=== PATIENT | female | born 1970 | race Caucasian/White ===

== ENCOUNTER → 2016-11-14 | Outpatient (CLI) | payer OTHER ==
[2016-11-14 13:12] LABS: MEAN CORPUSCULAR HEMOGLOBIN 35.2 pg (27.0-33.0); MEAN CORPUSCULAR HGB CONC 33.4 g/dl (32.0-36.5); MEAN CORPUSCULAR VOLUME 105.3 fl (80.0-96.0); RED CELL DISTRIBUTION WIDTH 12.4 % (11.5-14.5); WHITE BLOOD COUNT 5.1 K/mm3 (4.0-10.0)
[2016-11-14 13:43] LABS: ERYTHROCYTE SEDIMENTATION RATE 3 mm/hr (0-20)
[2016-11-14 13:58] LABS: ALBUMIN 3.8 GM/DL (3.2-5.2); ALBUMIN/GLOBULIN RATIO 1.52 (1.00-1.93); ALKALINE PHOSPHATASE 56 U/L (45-117); ALT/SGPT 29 U/L (12-78); AMYLASE 32 U/L (25-115); ANION GAP 6 MEQ/L (8-16); AST/SGOT 19 U/L (15-37); BILIRUBIN,TOTAL 0.4 MG/DL (0.2-1.0); BLOOD UREA NITROGEN 9 MG/DL (7-18); CALCIUM LEVEL 8.9 MG/DL (8.5-10.1); CARBON DIOXIDE LEVEL 27 MEQ/L (21-32); CHLORIDE LEVEL 109 MEQ/L (98-107); CREATININE FOR GFR 0.75 MG/DL (0.55-1.02); GLOMERULAR FILTRATION RATE > 60.0 (>58); GLUCOSE, FASTING 93 MG/DL (70-105); POTASSIUM SERUM 5.1 MEQ/L (3.5-5.1); SODIUM LEVEL 142 MEQ/L (136-145); TOTAL PROTEIN 6.3 GM/DL (6.4-8.2)
--- NOTE | 2016-11-15 02:44 | REP ---
Clinical: Right upper quadrant and abdominal pain. Technique: Upright view of the chest with supine and upright views of the abdomen and pelvis. Findings: Frontal upright view of the chest demonstrates no acute cardiopulmonary process or free air below the diaphragm to suspect pneumoperitoneum. Supine and upright views of the abdomen and pelvis demonstrate nonspecific bowel gas pattern without obstruction or perforation. No organomegaly. No abnormal calcifications. Skeletal structures normal for age. Impression: Nonspecific bowel gas pattern. Signed by Isaac Viera MD 11/15/2016 02:35 A
== END ==
LOC: M WUC 10:14
PROVIDERS: ATTEND Physician Assistant
DX: R10.811 Right upper quadrant abdominal tenderness (principal)

== ENCOUNTER → 2020-07-14 | Outpatient (CLI) | payer OTHER ==
--- NOTE | 2020-07-14 11:29 | REP ---
INDICATION: IMPINGEMENT SYNDROME. COMPARISON: None. TECHNIQUE: Internal rotation, external rotation, scapular, axillary and Y-view of the left shoulder. FINDINGS: No acute fracture or dislocation. The acromioclavicular and glenohumeral joints are intact and normal in appearance. No significant arthritic changes are appreciated. The subacromial space measures between 8.5 and 10.5 mm. No periarticular calcifications or loose bodies noted. IMPRESSION: Essentially normal age-appropriate left shoulder radiographs. <Electronically signed by Isaac Viera > 07/14/20 [id number]
== END ==
LOC: M SOG 07-13 14:39
PROVIDERS: ATTEND Orthopaedic Surgery Sports Medicine
DX: M25.512 Pain in left shoulder (principal)

== ENCOUNTER 2022-04-29 14:35 | Observation (INO) | payer OTHER ==
[~2022-04-29] VITALS: Ht 160 cm; Wt 59.1 kg
[2022-04-29] MEDS ORDERED: MORPHINE 4 MG/ML 1ML VIAL/SYRINGE IV ONE (15:35)
[2022-04-29 16:19] LABS: BASO % 0.4 % (0.0-1.0); EOS % 0.2 % (0.0-3.0); HEMATOCRIT 39.1 % (36.0-47.0); HEMOGLOBIN 13.3 g/dl (12.0-15.5); LYMPH # 0.7 10^3/uL (1.5-5.0); LYMPH % 13.9 % (24.0-44.0); MEAN CORPUSCULAR VOLUME 102.9 fl (80.0-96.0); MONO # 0.3 10^3/uL (0.0-0.8); MONO % 5.5 % (2.0-8.0); NEUTROPHILS # 4.2 10^3/uL (1.5-8.5); NEUTROPHILS % 79.6 % (36.0-66.0); PLATELET COUNT, AUTOMATED 124 10^3/uL (150-450); WHITE BLOOD COUNT 5.3 10^3/uL (4.0-10.0)
[2022-04-29 17:03] LABS: BLOOD UREA NITROGEN 12 MG/DL (7-18); CARBON DIOXIDE LEVEL 23 MEQ/L (21-32); CHLORIDE LEVEL 109 MEQ/L (98-107); CREATININE FOR GFR 0.73 MG/DL (0.55-1.30); GLOMERULAR FILTRATION RATE > 60.0 (>51); GLUCOSE, FASTING 96 MG/DL (70-100); POTASSIUM SERUM 4.7 MEQ/L (3.5-5.1); SODIUM LEVEL 139 MEQ/L (136-145)
[2022-04-29] MEDS ORDERED: HOME MED LIST COMPLETE! XX SCH (17:45)
[2022-04-29] MEDS ORDERED: ONDANSETRON 4MG 2ML VIAL IV PRN (18:25)
[2022-04-29] MEDS ORDERED: MORPHINE 2 MG/ML 1ML VIAL IV PRN (18:25)
[2022-04-29] MEDS ORDERED: ACETAMINOPHEN TAB 650MG DOSE (2X325MG) PO PRN (18:25)
[2022-04-29] MEDS ORDERED: carisoprodoL 350 MG TAB PO PRN (18:45)
[2022-04-29] MEDS ORDERED: MORPHINE 2 MG/ML 1ML VIAL IV ONE ×2 (18:45→23:00)
[2022-04-29] MEDS ORDERED: LR 1,000 ML IV SCH (18:50)
[2022-04-29 19:38] LABS: RSV AMPLIFICATION NEGATIVE (NEGATIVE)
[2022-04-29 20:17] LABS: INR 0.89; PROTHROMBIN TIME 12.2 SECONDS (12.5-14.5)
[2022-04-29 20:23] LABS: PARTIAL THROMBOPLASTIN TIME 24.5 SECONDS (24.8-34.2)
[2022-04-29] MEDS: KETOROLAC 30 MG/ML 1ML VIAL IV SCH (21:49)
[2022-04-29] MEDS ORDERED: PROCHLORPERAZINE 10MG 2ML VIAL IV ONE (23:00)
[2022-04-30] MEDS ORDERED: GABAPENTIN 300 MG CAP PO ONE (03:00)
[2022-04-30 03:06] VITALS: BP 156/82
[2022-04-30] MEDS ORDERED: ACETAMINOPHEN 500 MG TAB PO SCH (06:00)
[2022-04-30 06:06] LABS: HEMATOCRIT 39.3 % (36.0-47.0); HEMOGLOBIN 13.3 g/dl (12.0-15.5); MEAN CORPUSCULAR HEMOGLOBIN 34.5 pg (27.0-33.0); MEAN CORPUSCULAR HGB CONC 33.8 g/dl (32.0-36.5); MEAN CORPUSCULAR VOLUME 102.1 fl (80.0-96.0); PLATELET COUNT, AUTOMATED 119 10^3/uL (150-450); RED BLOOD COUNT 3.85 10^6/uL (4.00-5.40); WHITE BLOOD COUNT 5.3 10^3/uL (4.0-10.0)
[2022-04-30 06:45] LABS: ALBUMIN 3.6 GM/DL (3.2-5.2); ALT/SGPT 37 U/L (12-78); BILIRUBIN,TOTAL 0.6 MG/DL (0.2-1.0); BLOOD UREA NITROGEN 13 MG/DL (7-18); CALCIUM LEVEL 8.7 MG/DL (8.5-10.1); CARBON DIOXIDE LEVEL 21 MEQ/L (21-32); CHLORIDE LEVEL 105 MEQ/L (98-107); CREATININE FOR GFR 0.65 MG/DL (0.55-1.30); GLOMERULAR FILTRATION RATE > 60.0 (>51); GLUCOSE, FASTING 103 MG/DL (70-100); POTASSIUM SERUM 4.1 MEQ/L (3.5-5.1); SODIUM LEVEL 138 MEQ/L (136-145)
[2022-04-30] MEDS: KETOROLAC 30 MG/ML 1ML VIAL IV SCH ×2 (08:06→10:46)
[2022-04-30] MEDS ORDERED: oxyCODONE 5MG TAB PO PRN (08:15)
[2022-04-30] MEDS: DICLOFENAC EPOLAMINE 1.3 % PATCH TOP SCH ×2 (10:18→10:31)
[2022-04-30] MEDS ORDERED: IBUP-1022 PO (11:18)
[2022-04-30] MEDS ORDERED: ACET-683 PO (11:18)
[2022-04-30] MEDS ORDERED: TRAM50TA2 PO (11:18)
== END 2022-04-30 12:25 | disposition home or self-care (01) ==
LOC: M ED 14:35 → EDBD 14:35 → M ED INP 14:36
PROVIDERS: ADMIT Internal Medicine; ATTEND Internal Medicine
DX: M76.01 Gluteal tendinitis, right hip (principal); M76.891 Other specified enthesopathies of right lower limb, excluding foot; M25.551 Pain in right hip; W01.0XXA Fall on same level from slipping, tripping and stumbling without subsequent striking against object, initial encounter; Y92.093 Driveway of other non-institutional residence as the place of occurrence of the external cause; R26.2 Difficulty in walking, not elsewhere classified; M16.11 Unilateral primary osteoarthritis, right hip; D75.839 Thrombocytosis, unspecified; M47.812 Spondylosis without myelopathy or radiculopathy, cervical region; Z87.891 Personal history of nicotine dependence; Z88.0 Allergy status to penicillin
CPT/HCPCS: 36415; 72131; 72192; 73502; 73552; 73590; 73700; 73721; 80048; 80053; 82550; 82607; 82746; 85025; 85027; 85610; 85730; 87631; 96374; 96375; 96376; 97116; 97162; 97530; 99285; J0780; J1885; J2270; J2405